=== PATIENT | female | born 1950 | race Caucasian/White ===

== ENCOUNTER 2019-10-23 17:56 | Inpatient (IN) | payer MEDICARE, OTHER ==
[~2019-10-23] VITALS: Ht 149.9 cm; Wt 68.0 kg
[2019-10-23] MEDS ORDERED: QUET200T5 PO (18:37)
[2019-10-23 18:48] LABS: BASOPHILS % (AUTO) 0.3 % (0.0-2.0); EOSINOPHILS % (AUTO) 0.5 % (1.0-6.0); HEMATOCRIT 39.6 % (36-46); HEMOGLOBIN 13.5 g/dL (12.0-16.0); LYMPHOCYTES # (AUTO) 1.1 K/uL (1.0-4.8); MEAN CORPUSCULAR HEMOGLOBIN 29.9 pg (26.0-34.0); MEAN CORPUSCULAR HGB CONC 34.2 G/dL (31.0-37.0); MEAN CORPUSCULAR VOLUME 88 fL (80-100); MONOCYTES # (AUTO) 0.8 K/uL (0.1-1.0); MONOCYTES % (AUTO) 6.2 % (2.0-9.0); NEUTROPHILS # (AUTO) 10.4 K/uL (1.8-7.7); PLATELET COUNT (AUTO) 167 K/uL (150-450); RED BLOOD CELL COUNT(AUTO) 4.53 MIL/uL (4.00-5.20); RED CELL DISTRIBUTION WIDTH 16.1 % (11.5-14.5)
[2019-10-23 19:02] LABS: ANION GAP 18 mmol/L (8-16); CALCIUM, TOTAL 10.7 mg/dL (8.8-10.5); CARBON DIOXIDE 21 mmol/L (22-29); CHLORIDE 102 mmol/L (98-107); CREATININE 0.51 mg/dL (0.60-1.30); GLOMERULAR FILTR. RATE CALC > 60 mL/min (>60); GLUCOSE,RANDOM 78 mg/dL (70-110); POTASSIUM 3.5 mmol/L (3.5-5.1); SODIUM SERUM 141 mmol/L (136-145); UREA NITROGEN, BLOOD 9 mg/dL (7-18)
[2019-10-23 19:11] LABS: LACTIC ACID 1.8 mmol/L (0.4-2.0)
[2019-10-23 19:12] LABS: ALANINE AMINOTRANSFERASE 38 U/L (12-78); ALBUMIN 3.8 g/dL (3.4-5.0); ALKALINE PHOSPHATASE 277 U/L (46-116); ASPARTATE AMINOTRANSFERASE 53 U/L (15-37); BILIRUBIN,TOTAL 0.8 mg/dL (0.1-1.0); LIPASE 39 U/L (73-393); TOTAL PROTEIN, SERUM 7.2 g/dL (6.4-8.2)
[2019-10-23] MEDS ORDERED: MORPHINE SULFATE 2 MG/ML SYRINGE IVP ONE (19:15)
[2019-10-23] MEDS ORDERED: ONDANSETRON HCL 4 MG/2 ML VIAL IVP ONE (19:15)
[2019-10-23] MEDS ORDERED: ACETAMINOPHEN 325 MG TABLET PO PRN (20:15)
[2019-10-23] MEDS ORDERED: DEXTROSE 5%-0.45% SODIUM CHL 1,000 ML IV ONE (20:15)
[2019-10-23] MEDS ORDERED: POTASSIUM CHLORIDE 20 MEQ ER TABLET PO PRN (20:15)
[2019-10-23] MEDS ORDERED: LORazepam 2 MG/ML VIAL IVP ONE (20:30)
[2019-10-23 20:58] LABS: APPEARANCE,URINE CLOUDY (CLEAR); GLUCOSE, URINE (UA) NEGATIVE (NEGATIVE); KETONES,URINE >=80 mg/dL (NEGATIVE); LEUKOCYTE ESTERASE ,URINE LARGE (NEGATIVE); NITRATE,URINE NEGATIVE (NEGATIVE); OCCULT BLOOD,URINE TRACE (NEGATIVE); PH,URINE 5.5 (5.0-8.0); PROTEIN,URINE POS 1+ (NEGATIVE)
[2019-10-23 20:59] LABS: BILIRUBIN,URINE PRELIM. POSITIVE (NEGATIVE)
[2019-10-23] MEDS: DOCUSATE SODIUM 100 MG CAPSULE PO SCH (21:00)
[2019-10-23 21:06] LABS: RBC,URINE 0-2 /HPF (0-2); WBC,URINE 26-50 /HPF (0-5)
[2019-10-23 21:07] LABS: BACTERIA,URINE Few /HPF (None Seen); SQUAMOUS EPITHELIAL CELL,UR Few /LPF (None Seen)
[2019-10-23] MEDS ORDERED: CefTRIAXone 1 GM/DEXTROSE 50 ML IV ONE (22:00)
[2019-10-23 22:01] LABS: AMPHET/METH SCREEN,URINE NEGATIVE (NEGATIVE); BARBITURATE SCREEN, URINE NEGATIVE (NEGATIVE); BENZODIAZEPINES SCREEN,URINE NEGATIVE (NEGATIVE); CANNABINOID SCREEN,URINE NEGATIVE (NEGATIVE); COCAINE SCREEN,URINE NEGATIVE (NEGATIVE); METHADONE SCREEN, URINE NEGATIVE (NEGATIVE); OPIATE SCREEN,URINE NEGATIVE (NEGATIVE)
[2019-10-23 22:08] LABS: PHENCYCLIDINE SCREEN,URINE NEGATIVE (NEGATIVE)
[2019-10-23 22:40] VITALS: BP 123/72
[2019-10-23] MEDS ORDERED: SODIUM CHLORIDE 0.9% 100 ML ONE (23:39)
[2019-10-24 01:31] LABS: GLUCOMETER DEV NAME(LOC) 6N.2; GLUCOSE,POINT OF CARE 94 MG/DL (70-110)
[2019-10-24 03:56] VITALS: BP 125/66
[2019-10-24] MEDS: FAMOTIDINE 20 MG TABLET PO SCH (07:52)
[2019-10-24] MEDS: OxyCODONE HCL/ACETAMINOPHEN 5-325 MG TABLET PO PRN (07:53)
[2019-10-24] MEDS: HEPARIN SODIUM,PORCINE 5,000 UNITS/ML VIAL SQ SCH ×4 (07:53→23:56)
[2019-10-24] MEDS: DOCUSATE SODIUM 100 MG CAPSULE PO SCH ×2 (07:53→23:59)
[2019-10-24 09:21] VITALS: BP 111/70
[2019-10-24] MEDS: MORPHINE SULFATE 2 MG/ML SYRINGE IVP PRN ×2 (10:11→19:54)
[2019-10-24 11:19] VITALS: BP 105/57
[2019-10-24] MEDS ORDERED: SODIUM CHLORIDE 0.9% 500 ML IV ONE (15:26)
[2019-10-24 16:51] VITALS: BP 112/61
[2019-10-24 19:37] VITALS: BP 120/70
[2019-10-24] MEDS: CefTRIAXone 1 GM/DEXTROSE 50 ML IV SCH (22:16)
[2019-10-24 23:38] VITALS: BP 101/54
[2019-10-25 04:30] VITALS: BP 110/65
[2019-10-25] MEDS: MORPHINE SULFATE 2 MG/ML SYRINGE IVP PRN ×3 (05:53→22:16)
[2019-10-25 08:53] VITALS: BP 113/59
[2019-10-25] MEDS: FAMOTIDINE 20 MG TABLET PO SCH (09:06)
[2019-10-25] MEDS: MULTIVITAMINS WITH MINERALS, THERAPEUTIC TABLET PO SCH (09:06)
[2019-10-25] MEDS: DOCUSATE SODIUM 100 MG CAPSULE PO SCH ×2 (09:06→22:15)
[2019-10-25] MEDS: HEPARIN SODIUM,PORCINE 5,000 UNITS/ML VIAL SQ SCH ×2 (09:09→16:23)
[2019-10-25 12:51] VITALS: BP 105/60
[2019-10-25 15:39] VITALS: BP 107/66
[2019-10-25 20:58] VITALS: BP 134/76
[2019-10-25] MEDS: CefTRIAXone 1 GM/DEXTROSE 50 ML IV SCH (22:16)
[2019-10-26 00:05] VITALS: BP 122/67
[2019-10-26] MEDS: MORPHINE SULFATE 2 MG/ML SYRINGE IVP PRN (02:15)
[2019-10-26 06:43] VITALS: BP 134/79
[2019-10-26 07:10] LABS: BASOPHILS % (AUTO) 0.3 % (0.0-2.0); EOSINOPHILS % (AUTO) 2.1 % (1.0-6.0); HEMATOCRIT 32.8 % (36-46); HEMOGLOBIN 11.4 g/dL (12.0-16.0); LYMPHOCYTES # (AUTO) 1.4 K/uL (1.0-4.8); LYMPHOCYTES % (AUTO) 19.5 % (22.0-44.0); MEAN CORPUSCULAR HEMOGLOBIN 30.1 pg (26.0-34.0); MEAN CORPUSCULAR HGB CONC 34.8 G/dL (31.0-37.0); MEAN CORPUSCULAR VOLUME 87 fL (80-100); MONOCYTES # (AUTO) 0.5 K/uL (0.1-1.0); MONOCYTES % (AUTO) 6.9 % (2.0-9.0); NEUTROPHILS # (AUTO) 5.2 K/uL (1.8-7.7); NEUTROPHILS % (AUTO) 71.2 % (40.0-70.0); PLATELET COUNT (AUTO) 136 K/uL (150-450)
[2019-10-26 07:14] LABS: ANION GAP 8 mmol/L (8-16); CALCIUM, TOTAL 10.1 mg/dL (8.8-10.5); CARBON DIOXIDE 31 mmol/L (22-29); CHLORIDE 107 mmol/L (98-107); CREATININE 0.18 mg/dL (0.60-1.30); GLOMERULAR FILTR. RATE CALC > 60 mL/min (>60); GLUCOSE,RANDOM 92 mg/dL (70-110); SODIUM SERUM 146 mmol/L (136-145); UREA NITROGEN, BLOOD 8 mg/dL (7-18)
[2019-10-26 07:18] LABS: POTASSIUM 2.7 mmol/L (3.5-5.1)
[2019-10-26] MEDS: MULTIVITAMINS WITH MINERALS, THERAPEUTIC TABLET PO SCH (07:56)
[2019-10-26] MEDS: DOCUSATE SODIUM 100 MG CAPSULE PO SCH ×2 (07:56→20:04)
[2019-10-26] MEDS: POTASSIUM CHL 10 MEQ/WATER 50 ML IV PRN ×4 (07:56→13:03)
[2019-10-26] MEDS: HEPARIN SODIUM,PORCINE 5,000 UNITS/ML VIAL SQ SCH ×4 (07:56→23:28)
[2019-10-26] MEDS: FAMOTIDINE 20 MG TABLET PO SCH (07:56)
[2019-10-26] MEDS ORDERED: POTASSIUM CHL 10 MEQ/WATER 50 ML IV PRN (08:15)
[2019-10-26] MEDS ORDERED: POTASSIUM CHLORIDE 20 MEQ ER TABLET PO PRN (08:15)
[2019-10-26 08:35] VITALS: BP 150/78
[2019-10-26] MEDS ORDERED: SODIUM CHLORIDE 0.9% 250 ML IV ONE (10:57)
[2019-10-26 11:34] VITALS: BP 139/73
[2019-10-26 15:46] VITALS: BP_SYST 118; BP_SYST 170; BP_DIAS 68; BP_DIAS 98
[2019-10-26] MEDS: OxyCODONE HCL/ACETAMINOPHEN 5-325 MG TABLET PO PRN (18:20)
[2019-10-26] MEDS: MIRTAZAPINE 15 MG TABLET PO SCH (20:04)
[2019-10-26] MEDS: MAGNESIUM HYDROXIDE SUSPENSION 30 ML UDCUP PO PRN (20:04)
[2019-10-26 21:25] VITALS: BP 137/75
[2019-10-26] MEDS: CefTRIAXone 1 GM/DEXTROSE 50 ML IV SCH (21:52)
[2019-10-27 01:15] VITALS: BP 124/79
[2019-10-27] MEDS: OxyCODONE HCL/ACETAMINOPHEN 5-325 MG TABLET PO PRN ×3 (02:04→20:10)
[2019-10-27 04:02] VITALS: BP 117/58
[2019-10-27 08:07] VITALS: BP 113/69
[2019-10-27] MEDS: HEPARIN SODIUM,PORCINE 5,000 UNITS/ML VIAL SQ SCH ×3 (08:53→23:38)
[2019-10-27] MEDS: DOCUSATE SODIUM 100 MG CAPSULE PO SCH ×2 (08:53→20:07)
[2019-10-27] MEDS: MULTIVITAMINS WITH MINERALS, THERAPEUTIC TABLET PO SCH (08:53)
[2019-10-27] MEDS: FAMOTIDINE 20 MG TABLET PO SCH (08:53)
[2019-10-27] MEDS: MAGNESIUM HYDROXIDE SUSPENSION 30 ML UDCUP PO PRN (11:14)
[2019-10-27 11:59] VITALS: BP 102/59
[2019-10-27 15:10] VITALS: BP 108/58
[2019-10-27] MEDS ORDERED: SODIUM CHLORIDE 0.9% 250 ML IV ONE (19:11)
[2019-10-27] MEDS: MIRTAZAPINE 15 MG TABLET PO SCH (20:08)
[2019-10-27 20:25] VITALS: BP 113/60
[2019-10-27] MEDS: CefTRIAXone 1 GM/DEXTROSE 50 ML IV SCH (22:29)
[2019-10-27] MEDS: MORPHINE SULFATE 2 MG/ML SYRINGE IVP PRN (22:35)
[2019-10-28] VITALS (7 sets, daily range): BP systolic 92–143; BP diastolic 52–98
[2019-10-28] MEDS: OxyCODONE HCL/ACETAMINOPHEN 5-325 MG TABLET PO PRN (05:31)
[2019-10-28] MEDS: MULTIVITAMINS WITH MINERALS, THERAPEUTIC TABLET PO SCH (08:13)
[2019-10-28] MEDS: FAMOTIDINE 20 MG TABLET PO SCH (08:13)
[2019-10-28] MEDS: DOCUSATE SODIUM 100 MG CAPSULE PO SCH ×2 (08:13→20:28)
[2019-10-28] MEDS: HEPARIN SODIUM,PORCINE 5,000 UNITS/ML VIAL SQ SCH ×2 (08:13→15:19)
[2019-10-28 08:31] LABS: MAGNESIUM 2.1 mg/dL (1.80-2.40); PHOSPHORUS 5.5 mg/dL (2.5-4.9)
[2019-10-28 13:13] LABS: ANION GAP 9 mmol/L (8-16); CARBON DIOXIDE 34 mmol/L (22-29); CHLORIDE 102 mmol/L (98-107); GLOMERULAR FILTR. RATE CALC > 60 mL/min (>60); GLUCOSE,RANDOM 115 mg/dL (70-110); POTASSIUM 3.6 mmol/L (3.5-5.1); SODIUM SERUM 145 mmol/L (136-145); UREA NITROGEN, BLOOD 11 mg/dL (7-18)
[2019-10-28] MEDS: MORPHINE SULFATE 2 MG/ML SYRINGE IVP PRN ×2 (13:17→20:28)
[2019-10-28] MEDS: MIRTAZAPINE 15 MG TABLET PO SCH (20:28)
[2019-10-28] MEDS: CefTRIAXone 1 GM/DEXTROSE 50 ML IV SCH (23:58)
[2019-10-29] MEDS: HEPARIN SODIUM,PORCINE 5,000 UNITS/ML VIAL SQ SCH ×4 (00:48→23:25)
[2019-10-29] MEDS: OxyCODONE HCL/ACETAMINOPHEN 5-325 MG TABLET PO PRN ×2 (03:10→19:46)
[2019-10-29 03:49] VITALS: BP 124/74
[2019-10-29 08:34] VITALS: BP 110/59
[2019-10-29] MEDS: DOCUSATE SODIUM 100 MG CAPSULE PO SCH ×2 (08:50→20:08)
[2019-10-29] MEDS: FAMOTIDINE 20 MG TABLET PO SCH (08:50)
[2019-10-29] MEDS: MULTIVITAMINS WITH MINERALS, THERAPEUTIC TABLET PO SCH (08:51)
[2019-10-29 11:30] VITALS: BP 100/62
[2019-10-29 15:10] VITALS: BP 101/57
[2019-10-29] MEDS: MIRTAZAPINE 15 MG TABLET PO SCH (20:08)
[2019-10-29 20:40] VITALS: BP 121/62
[2019-10-29 23:10] VITALS: BP 106/63
[2019-10-29] MEDS: MORPHINE SULFATE 2 MG/ML SYRINGE IVP PRN (23:26)
[2019-10-30 05:32] VITALS: BP 103/54
[2019-10-30 07:56] VITALS: BP 106/64
[2019-10-30] MEDS: DOCUSATE SODIUM 100 MG CAPSULE PO SCH ×2 (08:49→20:06)
[2019-10-30] MEDS: MULTIVITAMINS WITH MINERALS, THERAPEUTIC TABLET PO SCH (08:50)
[2019-10-30] MEDS: FAMOTIDINE 20 MG TABLET PO SCH (08:50)
[2019-10-30] MEDS: HEPARIN SODIUM,PORCINE 5,000 UNITS/ML VIAL SQ SCH ×2 (08:51→16:12)
[2019-10-30 11:27] VITALS: BP 122/57
[2019-10-30 15:37] VITALS: BP 143/68
[2019-10-30] MEDS: MORPHINE SULFATE 2 MG/ML SYRINGE IVP PRN ×2 (16:10→22:01)
[2019-10-30] MEDS: MAGNESIUM HYDROXIDE SUSPENSION 30 ML UDCUP PO PRN (16:10)
[2019-10-30] MEDS: MIRTAZAPINE 15 MG TABLET PO SCH (20:06)
[2019-10-30 20:31] VITALS: BP 124/70
[2019-10-30 23:18] VITALS: BP 114/64
[2019-10-31] MEDS: HEPARIN SODIUM,PORCINE 5,000 UNITS/ML VIAL SQ SCH ×4 (00:22→23:53)
[2019-10-31] MEDS: OxyCODONE HCL/ACETAMINOPHEN 5-325 MG TABLET PO PRN ×2 (01:25→20:02)
[2019-10-31 05:16] VITALS: BP 112/62
[2019-10-31] MEDS: FAMOTIDINE 20 MG TABLET PO SCH (08:28)
[2019-10-31] MEDS: DOCUSATE SODIUM 100 MG CAPSULE PO SCH ×2 (08:28→20:03)
[2019-10-31] MEDS: MULTIVITAMINS WITH MINERALS, THERAPEUTIC TABLET PO SCH (08:28)
[2019-10-31 08:57] VITALS: BP 129/66
[2019-10-31 12:15] VITALS: BP 132/65
[2019-10-31 16:46] VITALS: BP 124/71
[2019-10-31] MEDS: MIRTAZAPINE 15 MG TABLET PO SCH (20:02)
[2019-10-31 20:26] VITALS: BP 117/72
[2019-10-31 23:36] VITALS: BP 100/57
[2019-11-01] MEDS: OxyCODONE HCL/ACETAMINOPHEN 5-325 MG TABLET PO PRN ×3 (00:10→18:17)
[2019-11-01 05:02] VITALS: BP 105/54
[2019-11-01] MEDS: HEPARIN SODIUM,PORCINE 5,000 UNITS/ML VIAL SQ SCH ×3 (08:00→23:15)
[2019-11-01 08:30] VITALS: BP 131/71
[2019-11-01] MEDS: MULTIVITAMINS WITH MINERALS, THERAPEUTIC TABLET PO SCH (08:57)
[2019-11-01] MEDS: DOCUSATE SODIUM 100 MG CAPSULE PO SCH ×2 (08:57→19:59)
[2019-11-01] MEDS: FAMOTIDINE 20 MG TABLET PO SCH (08:57)
[2019-11-01] MEDS: MORPHINE SULFATE 2 MG/ML SYRINGE IVP PRN ×2 (10:48→20:08)
[2019-11-01 12:02] VITALS: BP 133/81
[2019-11-01 15:44] VITALS: BP 117/68
[2019-11-01] MEDS: MIRTAZAPINE 15 MG TABLET PO SCH (19:59)
[2019-11-01 20:00] VITALS: BP 122/70
[2019-11-01 23:44] VITALS: BP 107/65
[2019-11-02 04:10] VITALS: BP 116/75
[2019-11-02] MEDS: OxyCODONE HCL/ACETAMINOPHEN 5-325 MG TABLET PO PRN (04:15)
[2019-11-02] MEDS: HEPARIN SODIUM,PORCINE 5,000 UNITS/ML VIAL SQ SCH (08:08)
[2019-11-02] MEDS: FAMOTIDINE 20 MG TABLET PO SCH (08:08)
[2019-11-02] MEDS: DOCUSATE SODIUM 100 MG CAPSULE PO SCH (08:09)
[2019-11-02] MEDS: MULTIVITAMINS WITH MINERALS, THERAPEUTIC TABLET PO SCH (08:09)
[2019-11-02 08:14] LABS: ANION GAP 10 mmol/L (8-16); CALCIUM, TOTAL 10.4 mg/dL (8.8-10.5); CARBON DIOXIDE 32 mmol/L (22-29); CHLORIDE 99 mmol/L (98-107); CREATININE 0.59 mg/dL (0.60-1.30); GLOMERULAR FILTR. RATE CALC > 60 mL/min (>60); GLUCOSE,RANDOM 89 mg/dL (70-110); SODIUM SERUM 141 mmol/L (136-145); UREA NITROGEN, BLOOD 12 mg/dL (7-18)
[2019-11-02 08:18] LABS: POTASSIUM 2.9 mmol/L (3.5-5.1)
[2019-11-02 08:24] VITALS: BP 104/70
[2019-11-02 09:14] LABS: BASOPHILS % (AUTO) 0.4 % (0.0-2.0); EOSINOPHILS % (AUTO) 2.4 % (1.0-6.0); HEMATOCRIT 52.4 % (36-46); HEMOGLOBIN 17.4 g/dL (12.0-16.0); LYMPHOCYTES # (AUTO) 1.2 K/uL (1.0-4.8); LYMPHOCYTES % (AUTO) 18.6 % (22.0-44.0); MEAN CORPUSCULAR HEMOGLOBIN 29.3 pg (26.0-34.0); MEAN CORPUSCULAR HGB CONC 33.2 G/dL (31.0-37.0); MEAN CORPUSCULAR VOLUME 88 fL (80-100); MONOCYTES # (AUTO) 0.4 K/uL (0.1-1.0); MONOCYTES % (AUTO) 5.4 % (2.0-9.0); NEUTROPHILS # (AUTO) 4.9 K/uL (1.8-7.7); NEUTROPHILS % (AUTO) 73.2 % (40.0-70.0); RED BLOOD CELL COUNT(AUTO) 5.93 MIL/uL (4.00-5.20); RED CELL DISTRIBUTION WIDTH 16.8 % (11.5-14.5)
[2019-11-02 09:17] LABS: PLATELET COUNT (AUTO) 105 K/uL (150-450)
[2019-11-02 11:47] VITALS: BP_SYST 126; BP_DIAS 57; BP_DIAS 75
[2019-11-02] MEDS: POTASSIUM CHL 10 MEQ/WATER 50 ML IV PRN ×4 (12:24→16:13)
[2019-11-02] MEDS ORDERED: FAMO10TA39 PO (15:56)
[2019-11-02] MEDS ORDERED: HEPA500018 SQ (15:56)
[2019-11-02] MEDS ORDERED: MIRT7.5T11 PO (15:56)
[2019-11-02] MEDS ORDERED: DOCU-275 PO (15:56)
[2019-11-02] MEDS ORDERED: MULT-1203 PO (15:57)
[2019-11-02] MEDS ORDERED: ACET-66 PO ×2 (15:57→15:59)
[2019-11-02] MEDS ORDERED: MOM30 PO ×2 (15:59→16:00)
[2019-11-02 16:18] VITALS: BP 114/55
== END 2019-11-02 17:51 | DRG 690 ==
LOC: EMS 17:56 → 6S 20:03
PROVIDERS: ADMIT Internal Medicine; ATTEND Internal Medicine
DX: N39.0 Urinary tract infection, site not specified (principal); F33.2 Major depressive disorder, recurrent severe without psychotic features; R62.7 Adult failure to thrive; G89.29 Other chronic pain; M19.90 Unspecified osteoarthritis, unspecified site; E87.6 Hypokalemia; Z68.30 Body mass index [BMI] 30.0-30.9, adult; Z74.01 Bed confinement status; Z85.3 Personal history of malignant neoplasm of breast; F41.9 Anxiety disorder, unspecified; M54.5 Low back pain; E86.0 Dehydration; M47.9 Spondylosis, unspecified; Z20.828 Contact with and (suspected) exposure to other viral communicable diseases
CPT/HCPCS: 51702; 83605; 83735; 84100; 84132; 87086; 93005; 97162; 97167; 97535; G0480; J0696; J1644; J2060; J2270; J2405; J3480; J7040; J7050